=== PATIENT | male | born 1995 | race Caucasian/White ===

== ENCOUNTER 2018-12-21 16:18 | Emergency (ER) | payer SELFPAY ==
[2018-12-21] MEDS: ACETAMINOPHEN 325 MG TAB PO (19:23)
[2018-12-21 20:06] LABS: URINE BLOOD (Dip) POC Negative (NEGATIVE); URINE GLUCOSE (Dip) POC Negative (NEGATIVE); URINE KETONES (Dip) POC Negative (NEGATIVE); URINE LEUKOCYTE EST (Dip) POC Negative (NEGATIVE); URINE NITRITE (Dip) POC Negative (NEGATIVE); URINE TOTAL PROTEIN POC Negative (NEGATIVE)
[2018-12-21 20:06] LABS: URINE PH (Dip) POC 8.5 (5.0-8.5)
== END 2018-12-21 20:32 | disposition home or self-care (01) ==
LOC: FTE 16:18
DX: H92.01 Otalgia, right ear (principal); M54.6 Pain in thoracic spine; M25.561 Pain in right knee; M79.604 Pain in right leg; R07.9 Chest pain, unspecified
CPT/HCPCS: 71045; 73562; 81003; 99284-25